=== PATIENT | male | born 1980 | race Caucasian/White ===

== ENCOUNTER → 2020-11-24 | Day surgery (SDC) | payer BC ==
[2020-11-24] VITALS (10 sets, daily range): BP systolic 92–131; BP diastolic 49–77
[~2020-11-24] VITALS: Ht 175.3 cm; Wt 59.0 kg
[~2020-11-24] MED LIST: Bacitracin Oint 15gm Tube TOPIC ONE; Betadine 10% Oint 30gm TOPIC ONE; Bupivacaine 0.5% Inj 30 ml vial INJ ONE; DiphenhydrAMINE 50mg/ml Inj IVP PRN; Ketorolac 30mg Inj IV PRN; LR 1000ml 1,000 ML IVLG SCH; LR 1000ml ONE; Lidocaine 1% MPF 10mg/ml 5ml ONE; Meperidine 25mg/1ml Inj (FOR RIGORS ONLY) IV PRN; Metoclopramide 10mg/2ml Inj IVP PRN; Midazolam 2mg/2ml Inj ONE; NS Irrig 1000ml IRRIG ONE; fentaNYL 100 mcg/2 mL IV ONE
--- NOTE | 2020-11-24 09:52 | Anethesia Preoperative Eval ---
Anesthesia Pre-op PMH/ROS General Date of Evaluation: Nov 24, 2020 Time of Evaluation: 09:49 Anesthesiologist: Antionette ASA Score: ASA 2 Mallampati Score Class I : Soft palate, uvula, fauces, pillars visible Class II: Soft palate, uvula, fauces visible Class III: Soft palate, base of uvula visible Class IV: Only hard plate visible Mallampati Classification: Class II Surgeon: Tabitha Diagnosis: Hammertoe deformity Surgical Procedure: Hamertoe correction Anesthesia History: none Family History: no anesthesia problems Allergies: Coded Allergies: No Known Allergies (Unverified , 11/18/20) Medications: see eMAR Patient NPO?: Yes Past Medical History Cardiovascular: Denies: HTN, CAD, AK, valve dz, arrhythmia, other Pulmonary: Denies: asthma, COPD, ROBERT, other Gastrointestinal/Genitourinary: Reports: GERD; Denies: CRI, ESRD, other Neurologic/Psychiatric: Reports: depression/anxiety; Denies: dementia, CVA, TIA, other Endocrine: Denies: DM, hypothyroidism, steroids, other HEENT: Denies: cataract (L), cataract (R), glaucoma, NINILCHIK (L), NINILCHIK (R), other Hematology/Immune: Denies: anemia, DVT, bleeding disorder, other Musculoskeletal/Integumentary: Denies: OA, RA, DJD, DDD, edema, other PMH Narrative: as above PSxH Narrative: Dental Sx Anesthesia Pre-op Phys. Exam Physician Exam Last Vital Signs Date Time Temp Pulse Resp B/P (MAP) Pulse Ox O2 Delivery O2 Flow Rate FiO2 11/24/20 07:41 98.2 46 18 131/77 100 Room Air Constitutional: NAD Neurologic: CN 2-12 intact Cardiovascular: RRR, no M/R/G Respiratory: CTA Gastrointestinal: S/NT/ND Airway Exam Mallampati Score: Class II MO: full Neck: flexible ROM: full Teeth: intact Dentures: no upper, no lower Anesthesia Pre-op A/P Labs see chart Studies Pre-op Studies: EKG - NSR Risk Assessment & Plan Assessment: ASA 2 Plan: GA with LMA patients request Status Change Before Surgery: No Pre-Antibiotics Drug: Ancef1 gr Given Within 1 Hr of Incision: Yes Time Given: 10:20 Kalin Adan MD Nov 24, 2020 09:52
--- NOTE | 2020-11-24 10:58 | Pre-Procedure Note/Attestation ---
Pre-Procedure Note/Attestation Complete Prior to Procedure Planned Procedure: right Procedure Narrative: Hammertoe correction fourth right digit Indications for Procedure Pre-Operative Diagnosis: Hammertoe deformity fourth right digit Attestation I attest that I discussed the nature of the procedure; its benefits; risks and complications; and alternatives (and the risks and benefits of such alternatives), prior to the procedure, with the patient (or the patient's legal registered representative). I attest that, if there was a reasonable possibility of needing a blood transfusion, the patient (or the patient's legal registered representative) was given the [facility] standardized written summary, pursuant to the Shay Lissy Blood Safety Act ([place] Health and Safety Code # 1645, as amended). I attest that I re-evaluated the patient just prior to the surgery and that there has been no change in the patient's H&P, except as documented below: Win Lu DPM Nov 24, 2020 10:58
--- NOTE | 2020-11-24 10:59 | Brief Operative Note ---
Immediate Post Operative Note Operative Note Pre-op Diagnosis: Hammertoe deformity fourth right digit Procedure: Hammertoe deformity fourth right digit Post-op Diagnosis: same as pre-op Surgeon: Tabitha Anesthesiologist: Antionette Anesthesia: MAC Specimen: yes Complications: none Condition: stable Fluids: 1000 Estimated Blood Loss: none Drains: none Implant(s) used?: Yes Win Lu DPM Nov 24, 2020 10:59
--- NOTE | 2020-11-24 11:03 | Immediate Post-Op Evaluation ---
Immediate Post-Op Evalulation Immediate Post-Op Evalulation Procedure: R 4-th digit hammertoe correction Date of Evaluation: Nov 24, 2020 Time of Evaluation: 11:02 IV Fluids: 1000 Blood Products: none Estimated Blood Loss: min Urinary Output: none Blood Pressure Systolic: 98 Blood Pressure Diastolic: 56 Pulse Rate: 62 Respiratory Rate: 20 O2 Sat by Pulse Oximetry: 99 Temperature (Fahrenheit): 97.6 Pain Score (1-10): 1 Nausea: No Vomiting: No Complications none Patient Status: reacts, patent, none Hydration Status: adequate Kalin Adan MD Nov 24, 2020 11:03
--- NOTE | 2020-11-24 11:37 | 48 Hour Post Anesthesia Eval ---
Post Anesthesia Evaluation Procedure: R 4-th digit hammertoe correction Date of Evaluation: Nov 24, 2020 Time of Evaluation: 11:36 Blood Pressure Systolic: 112 0: 55 Pulse Rate: 64 Respiratory Rate: 18 Temperature (Fahrenheit): 97.6 O2 Sat by Pulse Oximetry: 98 Airway: patent Nausea: No Vomiting: No Pain Intensity: 1 Hydration Status: adequate Cardiopulmonary Status: stable Mental Status/LOC: patient returned to baseline Follow-up Care/Observations: n/a Post-Anesthesia Complications: none Follow-up care needed: ready to discharge Kalin Adan MD Nov 24, 2020 11:37
--- NOTE | 2020-11-24 18:57 | Diagnostic Imaging Report ---
Indication: Postoperative, pain Technique: 3 views right foot Comparison: none Findings: The patient is status post osteotomies of the fourth proximal and middle phalanges, with a surgical nail bridging the osteotomy defects. No acute fracture. No dislocation. Impression: Postoperative right foot. No unusual features
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
--- NOTE | 2020-11-29 04:59 | Operative Note - Dictated ---
DATE OF OPERATION: 11/24/2020 SURGEON: Win Lu DPM. ANESTHESIOLOGIST: Kalin Adan M.D. ANESTHESIA: Local standby. PREOPERATIVE DIAGNOSIS: Hammertoe deformity, fourth right digit. POSTOPERATIVE DIAGNOSIS: Hammertoe deformity, fourth right digit. PROCEDURE PERFORMED: Hammertoe correction, fourth right digit. DESCRIPTION OF THE OPERATION: The patient was brought to the operating room and was placed on the operating table in the supine position. IV sedation was administered by the anesthesiologist. Local anesthesia consisting of 0.5% Marcaine plain a total of 7 mL was administered to the fourth right digit. An ankle tourniquet was applied to the right lower extremity. The foot was prepped and draped in the usual sterile manner. An Esmarch bandage was then utilized to exsanguinate the blood and the right ankle tourniquet was inflated to 250 mmHg. Attention was then directed to the fourth right digit where 2 semi-elliptical converging incisions were performed centered over the proximal interphalangeal joint. The skin ellipse was resected in total. At this point, the subcutaneous tissue was dissected down to the level of the joint. At the level of the proximal interphalangeal joint, a transverse tenotomy was performed. The extensor was reflected proximally. The head of the proximal phalanx was exposed and the collateral ligaments were severed. At this point, utilizing the sagittal saw, the head of the proximal phalanx was resected in total. The remaining bone was rasped smooth. Attention was then directed to the base of the intermediate phalanx where utilizing a bur the cartilage was removed. The K-wire was then utilized to drill guide holes into the proximal phalanx and intermediate phalanx. At this point, utilizing an Arthrosurface, toe implant was inserted and the toe was aligned in a rectus position. The implant was angled. The wound was copiously flushed utilizing sterile. At this point, the extensor tendon was reapproximated utilizing 4-0 Vicryl in a simple interrupted type stitch. The skin was then reapproximated utilizing 4-0 nylon in a simple interrupted type stitch. The wound was dressed utilizing an Adaptic 2 x 2 gauze and 3 inch Zechariah. The right ankle tourniquet was deflated and vascular supply was noted to all digits right foot. The patient tolerated the procedure well and left the operating room to recovery room with all vital signs stable. Win Lu D.P.M. DR: DELANEY JOB#: [id number] CC:
== END | disposition home or self-care (01) ==
LOC: SUR 07:10
DX: M20.41 Other hammer toe(s) (acquired), right foot (principal); K21.9 Gastro-esophageal reflux disease without esophagitis; F32.9 Major depressive disorder, single episode, unspecified; F41.9 Anxiety disorder, unspecified
CPT/HCPCS: 28285; 73630; 94003; C1776; J0690; J1100; J2250; J2405; J2704; J3010; J3490; J7120; U0004; 94150